=== PATIENT | female | born 1970 | race Caucasian/White ===

== ENCOUNTER → 2019-01-02 | Outpatient (CLI) | payer BC ==
[2015-10-18 14:53] VITALS: BP 110/78
[~2019-01-02] MED LIST: DOXY40CP PO; FOLI1TAB16 PO; PRED2.5T PO
--- NOTE | 2019-01-02 17:11 | RAD ---
Chest with bilateral RIBS, 5 views, 01/02/2019: HISTORY: Bilateral rib pain There is deformity of the lateral aspect of the right sixth rib suggesting an old healed fracture. This finding is also evident on the CT study of 10/17/2015. No acute fracture or destructive rib lesion is seen. There is no evidence of underlying pulmonary infiltrate, pneumothorax or hemothorax. The heart size is normal. There is a mild thoracic scoliosis. IMPRESSION: 1. Old right sixth rib fracture. 2. No acute rib abnormality is detected. Electronically signed by: Eduardo Steele MD (01/02/2019 5:07 PM) [facility]
--- NOTE | 2019-01-02 17:12 | RAD ---
MARÍA ELENA, 01/02/2019: HISTORY: Upper abdominal pain There is a moderate amount of stool in the right colon. The abdominal gas pattern is otherwise unremarkable. Surgical sutures are present in the left upper quadrant of the abdomen. There is no evidence organomegaly. No abnormal abdominal calcifications are seen. IMPRESSION: No acute abdominal abnormality is detected. Electronically signed by: Eduardo Steele MD (01/02/2019 5:09 PM) [facility]
== END | disposition home or self-care (01) ==
LOC: DXRAD 15:19
PROVIDERS: ATTEND Registered Nurse
DX: M41.84 Other forms of scoliosis, thoracic region (principal); R10.10 Upper abdominal pain, unspecified
CPT/HCPCS: 71111; 74018

== ENCOUNTER → 2019-01-09 | Outpatient (CLI) | payer BC ==
[2015-10-18 14:53] VITALS: BP 110/78
[~2019-01-09] MED LIST changes: +IOHEXOL 240 MG/ML 50ML VIAL. ONE; +IOHEXOL 300 MG/ML 75 ML VIAL. IV ONE
--- NOTE | 2019-01-09 10:02 | RAD ---
PQRS Compliance Statement: One or more of the following individualized dose reduction techniques were utilized for this examination: 1. Automated exposure control 2. Adjustment of the mA and/or kV according to patient size 3. Use of iterative reconstruction technique CT abdomen/pelvis with contrast 01/09/2019 9:00 AM INDICATION: Ketonuria, abdominal pain COMPARISON: None available TECHNIQUE: Multiple axial CT images of the abdomen and pelvis were obtained after the intravenous administration of nonionic contrast. Coronal and sagittal reformats are provided. FINDINGS: Subpleural tree-in-bud nodular airspace disease identified in the peripheral lateral basal segment right lower lobe with nodular opacity measuring up to 5 mm. There is a small hiatal hernia. Heart size is within normal limits. Liver, spleen, bilateral adrenal glands and pancreas are normal in appearance. Gallbladder is surgically absent. No intrahepatic or extrahepatic biliary ductal dilatation. The abdominal aorta is normal in course and caliber. There are no pathologically enlarged lymph nodes in the abdomen and pelvis. There is no abdominal free fluid. There is no free intraperitoneal air. Mild bowel wall thickening may be secondary to underdistention. Oral contrast was administered. Opacified bowel loops demonstrate normal mucosal fold pattern. Small and large bowel are normal in caliber. There is no evidence for bowel obstruction. There are no pericolonic inflammatory changes. A normal, nondilated appendix is visualized without adjacent inflammatory changes. Postoperative changes are identified from gastric bypass surgery. There is a 2 mm nonobstructing calculus in the interpolar right kidney. There is a 3 mm nonobstructing calculus in the superior pole the left kidney. There is no hydronephrosis. There is a 7 mm hypodense lesion in the superior pole the right kidney which is too small characterize, however statistically favored represent simple cyst. Urinary bladder is within normal limits given degree of distention. Uterus and adnexa appear normal by CT. No suspicious osseous amount is identified. IMPRESSION: 1. Subpleural tree-in-bud nodular airspace disease identified in the lateral basal segment of the right lower lobe. Findings may represent infectious/inflammatory pneumonitis. 3 month follow-up chest CT may be of benefit to assess resolution. 2. Bilateral nonobstructing renal calculi. No hydronephrosis. 3. 7 mm hypodense lesion in the superior pole the right kidney is too small characterize, however statistically favor to represent a simple cyst. This may be confirmed with renal ultrasound. 4. Postoperative changes from gastric bypass surgery without evidence for bowel obstruction or inflammation. Portions of the colon appear underdistended limiting evaluation. Electronically signed by: Leilani Henry MD (01/09/2019 9:59 AM) [id number]
== END | disposition home or self-care (01) ==
LOC: CT 07:58
PROVIDERS: ATTEND Registered Nurse
DX: K44.9 Diaphragmatic hernia without obstruction or gangrene (principal); J98.4 Other disorders of lung; N20.0 Calculus of kidney; N28.9 Disorder of kidney and ureter, unspecified; Z90.49 Acquired absence of other specified parts of digestive tract; Z98.84 Bariatric surgery status
CPT/HCPCS: 74177; Q9967

== ENCOUNTER → 2019-07-03 | Outpatient (CLI) | payer BC ==
[2015-10-18 14:53] VITALS: BP 110/78
[~2019-07-03] MED LIST changes: -IOHEXOL 240 MG/ML 50ML VIAL. ONE; -IOHEXOL 300 MG/ML 75 ML VIAL. IV ONE
--- NOTE | 2019-07-03 12:59 | RAD ---
CT chest without contrast HISTORY: Right lower lobe infiltrate COMPARISON: October 17, 2015 TECHNIQUE: Computed tomographic imaging of the chest was performed without IV contrast FINDINGS: The medial aspect of the right lower lobe there is emphysematous changes seen associated with subpleural scarring noted on the 2016 exam. No acute infiltrate is apparent. Visualized thyroid gland unremarkable. Mild residual thymic tissue again noted. No pericardial or pleural effusions. Postoperative changes of bariatric surgery again noted. At least one small 2 to 3 mm in probably 2 renal calculi are seen in the visualized left kidney. No suggestion of hydronephrosis. Old nonunified or incompletely unified right seventh rib fracture again seen. IMPRESSION: Progression of emphysematous changes related to scarring noted in the medial right lower lobe. No acute infiltrate is noted. Postsurgical changes of gastric surgery with hiatal hernia again noted appears unchanged. Several small left renal calculi are seen in the visualized portion of the left kidney. Electronically signed by: Yehuda Serrano MD (07/03/2019 12:56 PM) [id number]
== END | disposition home or self-care (01) ==
LOC: CT 09:22
PROVIDERS: ATTEND Internal Medicine
DX: J43.9 Emphysema, unspecified (principal); N20.0 Calculus of kidney; K44.9 Diaphragmatic hernia without obstruction or gangrene; R91.8 Other nonspecific abnormal finding of lung field
CPT/HCPCS: 71250